=== PATIENT | male | born 1930 | race Caucasian/White ===

== ENCOUNTER 2019-01-10 19:43 | Emergency (ER) | payer MEDICARE, OTHER ==
[2019-01-10] MEDS: hydrALAzine 20 MG INJ IV (20:54)
[2019-01-10 21:02] LABS: ADD MAN DIFF? NO
[2019-01-10 21:05] LABS: BASOPHIL # 0.1 10^3/ul (0.0-0.1); BASOPHILS % 0.6 % (0.0-2.0); EOSINOPHILS # 0.4 10^3/ul (0.0-0.5); EOSINOPHILS % 5.3 % (0.0-7.0); HEMATOCRIT 39.8 % (42.0-52.0); HEMOGLOBIN 13.1 g/dl (14.0-18.0); LYMPHOCYTES # 2.4 10^3/ul (0.8-2.9); LYMPHOCYTES % 30.1 % (15.0-51.0); MEAN CORPUSCULAR HEMOGLOBIN 29.4 pg (29.0-33.0); MEAN CORPUSCULAR HGB CONC 32.9 g/dl (32.0-37.0); MEAN CORPUSCULAR VOLUME 89.2 fl (82.0-101.0); MEAN PLATELET VOLUME 11.3 fl (7.4-10.4); MONOCYTE # 0.8 10^3/ul (0.3-0.9); MONOCYTES % 9.5 % (0.0-11.0); NEUTROPHIL # 4.3 10^3/ul (1.6-7.5); NEUTROPHILS % 54.2 % (39.0-77.0); PLATELET COUNT 172 10^3/UL (140-415); RED BLOOD COUNT 4.46 10^6/ul (4.70-6.10); RED CELL DISTRIBUTION WIDTH 12.5 % (11.5-14.5)
[2019-01-10 21:28] LABS: INR 0.89; PROTIME 12.2 Sec (11.9-14.9)
[2019-01-10 21:29] LABS: PARTIAL THROMBOPLASTIN TIME 28.4 Sec (23.0-35.0)
[2019-01-10 21:32] LABS: ALANINE AMINOTRANSFERASE 27 IU/L (13-69); ALBUMIN 4.1 g/dl (3.3-4.9); ALBUMIN/GLOBULIN RATIO 1.17; ALKALINE PHOSPHATASE 101 IU/L (42-121); ANION GAP 10 (5-13); ASPARTATE AMINO TRANSFERASE 22 IU/L (15-46); BILIRUBIN,INDIRECT 0.5 mg/dl (0-1.1); BILIRUBIN,TOTAL 0.5 mg/dl (0.2-1.3); BLOOD UREA NITROGEN 22 mg/dl (7-20); CALCIUM 9.2 mg/dl (8.4-10.2); CARBON DIOXIDE 26 mmol/L (21-31); CHLORIDE 102 mmol/L (97-110); CREATINE KINASE 48 IU/L (23-200); CREATININE 0.94 mg/dl (0.61-1.24); GLUCOSE 108 mg/dl (70-220); POTASSIUM 3.9 mmol/L (3.5-5.1); SODIUM 138 mmol/L (135-144); TOTAL PROTEIN 7.6 g/dl (6.1-8.1)
[2019-01-10 21:44] LABS: B-TYPE NATRIURETIC PEPTIDE 528 PG/ML (0-450); CK INDEX 2.5; CK-MB 1.19 ng/ml (0.0-2.4); TROPONIN-I < 0.012 ng/ml (0.000-0.120)
[2019-01-10] MEDS: DIPHENHYDRAMINE 50 MG INJ IV (21:50)
[2019-01-10] MEDS: LABETALOL HCL 20MG INJ IV (22:31)
[2019-01-10] MEDS: morphine 2 MG INJ IV (23:07)
[2019-01-10] MEDS: ONDANSETRON 4 MG INJ IV (23:08)
[2019-01-10] MEDS: LORAZEPAM 2 MG INJ IV (23:31)
== END 2019-01-10 23:43 | disposition home or self-care (01) ==
LOC: E/R 19:43
DX: I16.0 Hypertensive urgency (principal); I10 Essential (primary) hypertension; E11.9 Type 2 diabetes mellitus without complications
CPT/HCPCS: 70450; 71045; 80053; 82550; 82553; 83880; 84484; 85025; 85610; 85730; 93005; 96374; 96375; 99285-25